=== PATIENT | female | born 1955 | race Caucasian/White ===

== ENCOUNTER → 2020-04-08 08:56 | Outpatient (CLI) | payer MEDICARE, SELFPAY ==
--- NOTE | ~2020-04-08 | MR_ITS ---
EXAMINATION: MR lumbar spine wo [facility] EXAM DATE: 04/08/2020 09:39 INDICATION: Low back pain w/ right sciatica. TECHNIQUE: Multi-sequential, multiplanar MR images of the lumbar spine were obtained without contrast . Sagittal T1, T2, T2 fat saturation images. Axial T2 weighted images. Comparison is made to prior examination from 07/20/2014. FINDINGS: There is mild to moderate thoracolumbar levoscoliosis, lower lumbar dextroscoliosis. Parasp inal soft tissue is unremarkable. Moderate to severe loss of all lumbar disc heights, but with the en dplate irregularity most advanced at L5-S1. Mild diffuse loss of vertebral body heights. There is 2 m m retrolisthesis L2 on L3 and L3 on L4. There is 6 mm anterolisthesis L4 on L5 without spondylolysis. 3 mm retrolisthesis L5 on S1. The conus medullaris terminates at the L1 level and has normal signal intensity and morphology. 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 Level by level evaluation: T11-12: There is a mild diffuse disc bulge. Facet arthropathy: Mild to moderate. Neural foraminal stenosis: Mild left. Central canal stenosis: Mild. T12-L1: There is a mild diffuse disc bulge. Facet arthropathy: Mild. Neural foraminal stenosis: Mild to moderate left, mild right. Central canal stenosis: Mild. L1-L2: There is a moderate diffuse disc bulge. Superimposed central protrusion. Facet arthropathy: Mild. Neural foraminal stenosis: Moderate to severe right, mild to moderate left. Central canal stenosis: Moderate. Nerve root crowding.. L2-L3: There is a moderate diffuse disc bulge. Facet arthropathy: Mild to moderate. Neural foraminal stenosis: Moderate bilateral. Central canal stenosis: Moderate. L3-L4: There is a moderate diffuse disc bulge. Facet arthropathy: Moderate left, mild right. Neural foraminal stenosis: Moderate left, mild to moderate right. Central canal stenosis: Moderate to severe. L4-L5: There is a moderate to large diffuse disc bulge. Facet arthropathy: Moderate to severe left, moderate right. Neural foraminal stenosis: Moderate left, mild to moderate right. Central canal stenosis: Moderate. L5-S1: There is a moderate to large diffuse disc bulge. Facet arthropathy: Mild to moderate. Neural foraminal stenosis: Moderate right, mild to moderate left. Central canal stenosis: Mild to moderate. There is been noticeable interval progression in spondylosis compared to 2015. IMPRESSION: 1. Thoracolumbar scoliosis and moderate to severe disc disease. 2. L3-4 moderate to severe central canal stenosis, less stenosis at other levels. Reviewed, dictated and finalized at location . ING OFFICER IMPRESSION: 1. Thoracolumbar scoliosis and moderate to severe disc disease. 2. L3-4 moderate to severe central canal stenosis, less stenosis at other leve ls.
== END ==
PROVIDERS: Visit Provider Physician Assistant Medical
DX: M54.41 Lumbago with sciatica, right side (principal); M41.85 Other forms of scoliosis, thoracolumbar region; M48.061 Spinal stenosis, lumbar region without neurogenic claudication
CPT/HCPCS: 72148